=== PATIENT | male | born 1945 | race Caucasian/White ===

== ENCOUNTER → 2016-04-22 | Outpatient (CLI) | payer BC ==
--- NOTE | 2016-04-22 09:48 | DIAGNOSTIC IMAGING REPORT ---
THYROID ULTRASOUND HISTORY: E04.1 Thyroid nodule COMPARISON: Thyroid ultrasound 10/20/2015. FINDINGS: Right lobe: 4.7 x 1.8 x 1.5 cm. There is a 4 mm hypoechoic nodule. Left lobe: 4.3 x 1.4 x 1.3 cm. There are a few hypoechoic nodules with the largest in the lower pole measuring 7 x 6 x 5 mm. This remains unchanged. Isthmus: 4 mm in thickness. No nodules. IMPRESSION: Stable subcentimeter bilateral thyroid nodules. These do not meet CT criteria for pathologic involvement. Electronically signed by: Abraham Meadows M.D. 04/22/2016 9:46 AM Dictated Date/Time: 04/22/2016 9:45 AM
== END | disposition home or self-care (01) ==
LOC: C.ULTRBC 09:21
PROVIDERS: ATTEND Family Medicine
DX: E04.1 Nontoxic single thyroid nodule (principal)

== ENCOUNTER → 2016-05-24 | Outpatient (CLI) | payer BC ==
[2016-05-24 13:57] LABS: ALT/SGPT 44 U/L (12-78); AST/SGOT 24 U/L (15-37); BLOOD UREA NITROGEN 17 mg/dl (7-18); BUN/CREATININE RATIO 16.7 (10-20); CALCIUM 9.6 mg/dl (8.5-10.1); CARBON DIOXIDE 26 mmol/L (21-32); CHLORIDE 106 mmol/L (98-107); GLUCOSE 121 mg/dl (70-99); POTASSIUM 4.2 mmol/L (3.5-5.1); SODIUM 139 mmol/L (136-145)
[2016-05-24 14:05] LABS: ALB/GLOB RATIO 1.1 (0.9-2); ALKALINE PHOSPHATASE 52 U/L (45-117)
[2016-05-24 14:07] LABS: ESTIMATED AVERAGE GLUCOSE 128 mg/dl; HA1C FLAG Normal (Normal)
--- NOTE | 2016-05-28 10:13 | CODING QUERY MEDICAL NECESSITY ---
SUPPORTING DIAGNOSIS NEEDED A supporting diagnosis is required for the test/procedure performed on this patient in order for us to be reimbursed by the patient's insurance. Please provide a supporting diagnosis for the following test/procedure listed below next to the test name along with your signature. *If there is no additional diagnosis for this patient that would support the following test/procedure please document that below next to the test/procedure. Test(s)/Procedure(s) that require a supporting diagnosis: DOS 05/24 * Hba1c DIAGNOSIS: Provider Signature: Date: Thank you Leah Goodwin [facility] Information Management Once completed, please kindly fax back to [phone] For questions please call [phone]
== END | disposition home or self-care (01) ==
LOC: C.LABBC 10:53
PROVIDERS: ATTEND Family Medicine
DX: R73.03 Prediabetes (principal); E03.9 Hypothyroidism, unspecified; I10 Essential (primary) hypertension

== ENCOUNTER → 2017-04-07 | Outpatient (CLI) | payer BC ==
--- NOTE | 2017-04-07 11:12 | DIAGNOSTIC IMAGING REPORT ---
CHEST 2 VIEWS ROUTINE HISTORY: 71 years-old Male R05 [id number] acute cough COMPARISON: None available TECHNIQUE: PA and lateral views of the chest FINDINGS: Cardiac mediastinal and hilar silhouettes are within normal limits. Atherosclerosis of the aorta. No pneumothorax, pleural effusion, focal airspace consolidation or overt pulmonary edema. Mild hyperinflation with increased lucency of the lungs suggesting emphysema. Bones of the chest appear grossly intact. IMPRESSION: Hyperinflation and probable emphysema without acute process. The above report was generated using voice recognition software. It may contain grammatical, syntax or spelling errors. Electronically signed by: Mookie Lara M.D. 04/07/2017 11:11 AM Dictated Date/Time: 04/07/2017 11:09 AM
[2017-04-07 14:06] LABS: HEMOGLOBIN A1C 6.2 % (4.5-5.6)
[2017-04-07 14:39] LABS: ALBUMIN 4.1 gm/dl (3.4-5.0); ALT/SGPT 55 U/L (12-78); AST/SGOT 29 U/L (15-37); BLOOD UREA NITROGEN 17 mg/dl (7-18); CALCIUM 9.4 mg/dl (8.5-10.1); CARBON DIOXIDE 26 mmol/L (21-32); CHOLESTEROL 142 mg/dl (0-200); CREATININE 1.17 mg/dl (0.60-1.40); GLUCOSE 128 mg/dl (70-99); LDL CHOLESTEROL CALCULATED 69 mg/dl; POTASSIUM 4.2 mmol/L (3.5-5.1); SODIUM 138 mmol/L (136-145)
[2017-04-07 14:49] LABS: ALKALINE PHOSPHATASE 47 U/L (45-117); TOTAL PROTEIN 8.1 gm/dl (6.4-8.2)
== END | disposition home or self-care (01) ==
LOC: C.LABBC 10:50
PROVIDERS: ATTEND Physician Assistant Medical
DX: Z11.59 Encounter for screening for other viral diseases (principal); I10 Essential (primary) hypertension; R73.03 Prediabetes; E03.9 Hypothyroidism, unspecified; R05 Cough

== ENCOUNTER → 2017-10-06 | Outpatient (CLI) | payer BC ==
[2017-10-06 13:58] LABS: ALBUMIN 3.9 gm/dl (3.4-5.0); ALKALINE PHOSPHATASE 44 U/L (45-117); ALT/SGPT 61 U/L (12-78); AST/SGOT 31 U/L (15-37); BLOOD UREA NITROGEN 15 mg/dl (7-18); CALCIUM 8.8 mg/dl (8.5-10.1); CARBON DIOXIDE 23 mmol/L (21-32); CREATININE 1.07 mg/dl (0.60-1.40); GLUCOSE 125 mg/dl (70-99); POTASSIUM 4.2 mmol/L (3.5-5.1); SODIUM 137 mmol/L (136-145); TOTAL PROTEIN 7.7 gm/dl (6.4-8.2)
== END | disposition home or self-care (01) ==
LOC: C.LABBC 10:21
PROVIDERS: ATTEND Nurse Practitioner Adult Health
DX: I10 Essential (primary) hypertension (principal); E78.5 Hyperlipidemia, unspecified